=== PATIENT | female | born 1970 | race African-American/Black ===

== ENCOUNTER 2018-12-31 12:47 | Day surgery (SDC) | payer OTHER ==
[2018-11-22 09:27] VITALS: BMI 26.0
[2018-12-31] MEDS ORDERED: MIDAZOLAM HCL 2 MG/2 ML SINGLE DOSE VIAL ONE (14:19)
[2018-12-31] MEDS ORDERED: PROPOFOL 20 ML ONE ×3 (14:27→14:34)
[2018-12-31] MEDS ORDERED: SUCCINYLCHOLINE CHLORIDE 200 MG/10 ML VIAL ONE (14:34)
[2018-12-31] MEDS ORDERED: ceFAZolin SODIUM 1 GM VIAL IVPB ONE (14:58)
[2018-12-31] MEDS ORDERED: GLYCOPYRROLATE 0.2 MG/1 ML VIAL ONE (15:08)
[2018-12-31] MEDS ORDERED: ceFAZolin SODIUM 1 GM VIAL ONE (15:08)
[2018-12-31] MEDS ORDERED: ACETAMINOPHEN 500 MG TABLET (FP) PO PRN (15:47)
[2018-12-31] MEDS ORDERED: IBUPROFEN 400 MG TABLET (FP) PO PRN (15:47)
[2018-12-31] MEDS ORDERED: PATIENT'S OWN MEDICATION (NON-FORMULARY) (Alprazolam [Xanax] 0.5 MG) PO PRN (15:47)
--- NOTE | 2018-12-31 15:49 | OP ---
Operative Note - Note: Operative Date: 12/31/18 Pre-Operative Diagnosis: Right wrist/hand carpal tunnel syndrome Operation: Open right wrist/hand carpal tunnel syndrome Findings: Tourniquet Pressure: 300mmHg. Tourniquet Time: 23 minutes. 2g IV Ancef Post-Operative Diagnosis: Same as Pre-op Surgeon: Darrian Mendez Geography Faculty Member: Kenny Mendez Anesthesiologist/[employer] LINE: Pino Donahue Anesthesia: General Estimated Blood Loss (mls): 0 Fluid Volume Replaced (mls): 800 (Crystalloid) Operative Report Dictated: Yes
--- NOTE | 2018-12-31 15:50 | PN ---
Progress Note (short form) - Note Progress Note: 48F s/p right open carpal tunnel release POD #0. -Pain control. -Incentive spirometry. -NWB RUE. -Keep dressing clean & dry. -Percocet, meloxicam ordered to pharmacy for analgesia; OK to use OTC NSAID's instead. -Elevate wrist/hand above level of heart. -Discharge home: f/u [facility] [place] [facility] 01/07/2019; call for appointment: . Darrian Mendez MD (Orthopaedic Surgery).
[2018-12-31] MEDS ORDERED: ONDANSETRON 4 MG/2 ML VIAL ONE (15:51)
[2018-12-31] MEDS ORDERED: oxyCODONE HCL 5 MG TABLET PO PRN ×2 (15:53)
[2018-12-31] MEDS ORDERED: PROMETHAZINE HCL 25 MG/1 ML VIAL IVPUSH PRN (15:53)
[2018-12-31] MEDS ORDERED: ONDANSETRON 4 MG/2 ML VIAL IVPUSH PRN (15:53)
[2018-12-31 16:53] VITALS: TEMP 98.2
[2018-12-31 17:31] VITALS: BP 134/80; PULSE 72
[2018-12-31] MEDS ORDERED: PRAZOSIN HCL 5 MG CAPSULE PO SCH (22:00)
[2018-12-31] MEDS ORDERED: traZODone HCL 50 MG TABLET (FP) PO SCH (22:00)
[2019-01-01] MEDS ORDERED: ESCITALOPRAM OXALATE 10 MG TABLET (FP) PO SCH (10:00)
--- NOTE | 2019-01-03 09:34 | OP ---
DATE OF OPERATION: 12/31/2018 PREOPERATIVE DIAGNOSIS: Right carpal tunnel syndrome. POSTOPERATIVE DIAGNOSIS: Right carpal tunnel syndrome. SURGERY PERFORMED: Right open wrist/hand carpal tunnel release. CLOSURE: Nylon 3-0. SURGEON: Darrian Mendez MD CLOCK REPAIR TECHNICIAN: Kenny Mendez MD TOURNIQUET PRESSURE: 300 mmHg. TOURNIQUET TIME: 23 minutes. INTRAVENOUS ANTIBIOTICS: Ancef 2 g. INTRAVENOUS FLUID: Crystalloid 600 mL. ANESTHESIOLOGIST: DK Dejesus ANESTHESIA: General endotracheal tube anesthesia. MD KAYDEN Rivera/[id number]
== END 2018-12-31 17:32 | disposition home or self-care (01) ==
LOC: FASU 12:47
PROVIDERS: ATTEND Orthopaedic Surgery Adult Reconstructive Orthopaedic Surgery
PROC: 01N50ZZ Release Median Nerve, Open Approach (ICD-10-PCS; principal; 2018-12-31 14:00)
DX: G56.01 Carpal tunnel syndrome, right upper limb (principal)
CPT/HCPCS: 84703; 94760